=== PATIENT | female | born 1955 | race African-American/Black ===

== ENCOUNTER 2017-01-25 09:50 | Emergency (ER) | payer MEDICAID, OTHER ==
[~2017-01-25] VITALS: Ht 170.2 cm; Wt 99.0 kg
[2017-01-25 09:51] VITALS: Ht 170.2 cm; Wt 99.0 kg
[2017-01-25] MEDS ORDERED: KETOROLAC 30 MG INJ IM STA (11:16)
[2017-01-25 11:25] LABS: URINE BLOOD (Dip) POC Negative (NEGATIVE)
[2017-01-25] MEDS ORDERED: HYDROCODONE/APAP (5/325) TAB PO ONE (11:30)
[2017-01-25] MEDS ORDERED: LORAZEPAM 0.5 MG TAB PO ONE (11:30)
--- NOTE | 2017-01-25 12:11 | ERD ---
ER Documentation Chief Complaint Date/Time DATE: 01/25/17 TIME: 12:08 Chief Complaint BACK PAIN AND LEFT KNEE PAIN. HPI 61-year-old female with a history of chronic back pain comes in with back pain, and left knee pain as well as anxiety. Patient states that she normally sees her primary care doctor, Dr. Maddox but her primary is being changed and she does not have medication at this time. She reports that she takes Xanax for anxiety and is causing her to have knots in her stomach. She also complains of lower back pain she states that she has herniated disks and L1 through L5. She also states that she fell yesterday and hit her left knee. She is requesting Dilaudid at this time, she is also asking for Benadryl. She denies saddle anesthesia loss of bowel bladder function. She denies fevers or chills. ROS All systems reviewed and are negative except as per history of present illness. Allergies Allergies: Coded Allergies: Penicillins (Verified Allergy, Mild, 01/25/17) PMhx/Soc History of Surgery: Yes (caesarian section) Hx Cardiac Disorders: Yes (hypertension) Hx Miscellaneous Medical Probl: Yes (ulcer,herniated disk- l4 l5; scolosis) Hx Alcohol Use: Yes Hx Substance Use: No Hx Tobacco Use: No Physical Exam Vitals Vital Signs Date Time Temp Pulse Resp B/P Pulse Ox O2 Delivery O2 Flow Rate FiO2 01/25/17 09:51 97.6 62 18 170/80 99 Physical Exam General: Well-developed, well-nourished. The patient appears in no acute distress. HEENT: Head is normocephalic, atraumatic. No scleral icterus. Neck: Supple. Nontender. Lungs: Clear to auscultation. Normal air movement. Heart: Regular rate and rhythm. S1 and S2 are normal. No murmurs, gallops, or rubs. Abdomen: Soft, nontender, nondistended. Bowel sounds are normoactive. Extremities: No clubbing or cyanosis. Normal pulses. Moving extremities x 4. No weakness. Strength lower extremities 5 out of 5 bilaterally. She has full range of motion with left knee flexion extension, no bony deformities. Atraumatic Neurologic: Alert and oriented 3. No focal deficits. Skin: Normal turgor. No rash or lesions. Results 24 hrs Laboratory Tests Test 01/25/17 11:27 Bedside Urine pH (LAB) 7.0 Bedside Urine Protein (LAB) Negative Bedside Urine Glucose (UA) Negative Bedside Urine Ketones (LAB) Negative Bedside Urine Blood Negative Bedside Urine Nitrite (LAB) Negative Bedside Urine Leukocyte Esterase (L Negative Current Medications Medications (Trade) Dose Ordered Sig/Polly Route PRN Reason Start Time Stop Time Status Last Admin Dose Admin Ketorolac Tromethamine (Toradol) 30 mg ONCE STAT IM 01/25/17 11:16 01/25/17 11:18 DC 01/25/17 11:38 Lorazepam (Ativan) 0.5 mg ONCE ONCE PO 01/25/17 11:30 01/25/17 11:31 DC 01/25/17 11:39 Acetaminophen/ Hydrocodone Bitart ([place] (5/325)) 1 tab ONCE ONCE PO 01/25/17 11:30 01/25/17 11:31 DC 01/25/17 11:38 Procedures/MDM ER course: Patient was given Toradol 30 mg IM, and she was also given 1 p.o. [place] and Ativan p.o. 0.5 mg. MDM: 61-year-old female comes in with low back pain, anxiety, and left knee pain. Differential diagnosis includes but is not limited to herniated disks, subluxation, fracture, cauda equina, epidural abscess, epidural hematoma. This is a chronic presentation of her low back pain, and her pain policy was explained to the patient which she understands. Her left knee appears to be atraumatic, there is extremely low suspicion that there is any fracture of any sort, dislocation, DVT or of any limb threatening process at this time. She was also follow-up with her primary care doctor, she states that she is able to see a physician in 2 days. Patient's blood pressure was elevated (>120/80) but appears stable without evidence of hypertension emergency or urgency. The patient was counseled about the risks of hypertension and urged to pursue outpatient monitoring and therapy within a week with their primary care physician. Departure Diagnosis: Primary Impression: Back pain Additional Impression: Anxiety Condition: Good Patient Instructions: Anxiety Reaction, Back Pain (Acute Or Chronic) Additional Instructions: You have been given a medicine which may cause drowsiness.DO NOT DRIVE OR OPERATE DANGEROUS MACHINERY while taking this medicine! TRACY HURTADO PA-C January 25, 2017 12:11
== END 2017-01-25 11:50 | disposition home or self-care (01) ==
LOC: FTE 09:50
DX: M54.5 Low back pain (principal); I10 Essential (primary) hypertension; F41.9 Anxiety disorder, unspecified
CPT/HCPCS: 81003; 96372; J1885; Z7502; Z7610

== ENCOUNTER 2018-12-04 11:59 | Day surgery (SDC) | payer MEDICAID, OTHER ==
[~2018-12-04] VITALS: Ht 170.2 cm; Wt 86.8 kg
[~2018-12-04 11:59] MED LIST: PROPOFOL 200 MG INJ ONE
[2018-12-04] MEDS ORDERED: LIDOCAINE 2% (SDV) 5 ML INJ ONE (13:43)
[2018-12-04] MEDS ORDERED: PROPOFOL 40 ML ONE (13:43)
--- NOTE | 2018-12-04 13:48 | PREAC ---
Date/Time of Note Date/Time of Note DATE: 12/04/18 TIME: 13:47 Anesthesia Eval and Record Evaluation Time Pre-Procedure Interview DATE: 12/04/18 TIME: 13:47 Age 63 Sex female NPO: 8 hrs Preoperative diagnosis reflux, screening Planned procedure EGD, colonoscopy Past Medical History Past Medical History: Includes Cardio: HTN Pulm: COPD Psych: Depression, Anxiety Recreational drugs: Cocaine Surgery & Anesthesia Issues No known issue Meds Anticoagulation: No Beta Vane within 24 hr: No Reason Beta Vane not given: Pt. not on B-Vane Meds reviewed: Yes Allergies Coded Allergies: Penicillins (Verified Allergy, Mild, 01/25/17) Allergies Reviewed: Yes Labs/Studies Labs Reviewed: Reviewed by anesthesiologist test: N/A Pre-procedure Exam Airway: Adequate mouth opening, Adequate thyromental dist Mallampati: Mallampati II Teeth: Normal Lung: Normal Heart: Normal ASA Physical Status ASA physical status: 3 Emergency: None Planned Anesthetic General/MAC: Mask Planned Pain Management Parenteral pain med Pre-operative Attestations Prior to commencing anesthesia and surgery, the patient was re-evaluated, there was verification of: *The patient's identity *The results of appropriate recent lab work and preoperative vital signs *The above evaluation not changing prior to induction *Anesthetic plan, risk benefits, alternative and complications discussed with patient/family; questions answered; patient/family understands, accepts and wishes to proceed. RENATE FERNANDEZ MD Dec 04, 2018 13:48
[2018-12-04 13:50] VITALS: Ht 170.2 cm; Wt 86.8 kg
[2018-12-04] MEDS ORDERED: MIDAZOLAM 1 MG/ML 2 ML INJ ONE (13:53)
[2018-12-04] MEDS ORDERED: LORAZEPAM (13:56)
[2018-12-04] MEDS ORDERED: OXYC30TA PO (13:56)
[2018-12-04] MEDS ORDERED: [UNRECOGNIZED DRUG - REMARK] (13:56)
[2018-12-04] MEDS ORDERED: ASPI-903 PO (13:56)
[2018-12-04] MEDS ORDERED: ALPR2TAB PO (13:56)
[2018-12-04] MEDS ORDERED: ARIP20TA5 PO (13:56)
[2018-12-04] MEDS ORDERED: AMLO-147 PO (13:56)
[2018-12-04] MEDS ORDERED: ONDANSETRON 4 MG INJ IV PRN (14:00)
--- NOTE | 2018-12-04 14:58 | PAC ---
Date/Time of Note Date/Time of Note DATE: 12/04/18 TIME: 14:58 Post-Anesthesia Notes Post-Anesthesia Note Activity: WNL Respiratory function: WNL Cardiovascular function: WNL Mental status: Baseline Pain reasonably controlled: Yes Hydration appropriate: Yes Nausea/Vomiting absent: Yes Comments BP: 132/74 HR: 72 RR: 15 T: 98 SaO2: 98% RENATE FERNANDEZ MD Dec 04, 2018 14:58
[2018-12-04 15:32] VITALS: BP 144/86; PULSE 70; RESP 16
[2018-12-04 15:35] VITALS: BP 126/60; RESP 20
== END 2018-12-04 15:34 | disposition home or self-care (01) ==
LOC: GIL 11:59
PROVIDERS: ATTEND Internal Medicine Gastroenterology
DX: Z12.11 Encounter for screening for malignant neoplasm of colon (principal); D12.5 Benign neoplasm of sigmoid colon; K29.60 Other gastritis without bleeding; K64.8 Other hemorrhoids; I10 Essential (primary) hypertension; J44.9 Chronic obstructive pulmonary disease, unspecified
CPT/HCPCS: 43239; 45385; 88305; J2250; Z7610